=== PATIENT | female | born 1985 | race Caucasian/White ===

== ENCOUNTER 2019-07-04 17:55 | Emergency (ER) | payer OTHER ==
[~2019-07-04] VITALS: Ht 157.5 cm; Wt 101.2 kg
[2019-07-04 18:02] VITALS: BP 110/79
--- NOTE | 2019-07-04 18:06 | NUR ---
PT C/O ONGOING R [facility]OTHACHE TO [place] [facility]. STATES SHE WAS SUPPOSED TO SEE DENTIST YESTERDAY BUT IT WAS CLOSED DUE TO COVID-19. PT ALSO ADDS REFERRED R EAR PAIN AND H/A 7/10 IN SEVERITY. PT ALERT AND AWAKE, VS STABLE. AMBULATORY WITH STEADY GAIT. PMH- DENIES
--- NOTE | 2019-07-04 18:11 | NUR ---
RHODA MEAD AT BEDSIDE
[2019-07-04] MEDS ORDERED: KETOROLAC 30 MG/ML VIAL IM ONE (18:15)
--- NOTE | 2019-07-04 18:21 | NUR ---
[facility] IM ADMINISTERED
--- NOTE | 2019-07-04 18:50 | NUR ---
PT STATES LITTLE RELIEF FROM PAIN, PAIN 09/22, PA MEAD NOTIFIED, STATES DISHCARGE PT AND HAVE HER FILL PRESCRIPTION
[2019-07-04 18:51] VITALS: BP 115/71
--- NOTE | 2019-07-04 18:51 | NUR ---
Patient discharged with v/s stable. Written and verbal after care instructions given and explained. Patient alert, oriented and verbalized understanding of instructions. Ambulatory with steady gait. All questions addressed prior to discharge. ID band removed. Patient advised to follow up with PMD. Rx of AMOXICILLIN, TYLENOL WITH CODEINE, AND IBUPROFEN given. Patient educated on indication of medication including possible reaction and side effects. Opportunity to ask questions provided and answered.
== END 2019-07-04 18:51 | disposition home or self-care (01) ==
LOC: MED 17:55
DX: K08.89 Other specified disorders of teeth and supporting structures (principal); K66.9 Disorder of peritoneum, unspecified
CPT/HCPCS: 96372; 99283; J1885

== ENCOUNTER 2020-04-02 21:10 | Emergency (ER) | payer OTHER ==
[~2020-04-02] VITALS: Ht 152.4 cm; Wt 79.4 kg
[2020-04-02 21:10] VITALS: BP 134/80
--- NOTE | 2020-04-02 21:12 | NUR ---
CARMEN CHENG A/W BED AMBULATORY
[2020-04-02 21:30] VITALS: BP 134/80
[2020-04-02] MEDS ORDERED: IBUPROFEN 600 MG TAB PO ONE (21:55)
--- NOTE | 2020-04-02 21:58 | NUR ---
AMBULATED TO CHAIR D
--- NOTE | 2020-04-02 23:28 | NUR ---
Patient discharged with v/s stable. Written and verbal after care instructions given and explained. Patient alert, oriented and verbalized understanding of instructions. Ambulatory with steady gait. All questions addressed prior to discharge. ID band removed. Patient advised to follow up with PMD. Rx of PENICILLIN AND MOTRIN given. Patient educated on indication of medication including possible reaction and side effects. Opportunity to ask questions provided and answered.
== END 2020-04-02 23:28 | disposition home or self-care (01) ==
LOC: MED 21:10
DX: K04.7 Periapical abscess without sinus (principal)
CPT/HCPCS: 99283

== ENCOUNTER 2020-12-08 11:14 | Emergency (ER) | payer OTHER, SELFPAY ==
[~2020-12-08] VITALS: Ht 162.6 cm; Wt 90.7 kg
[2020-12-08 11:25] VITALS: BP 120/85
--- NOTE | 2020-12-08 11:37 | NUR ---
PATIENT PRESENTS TO ED WITH LEFT SIDED CHEST PAIN AND DIZZINESS X2 DAYS . PT STATES SHE [facility]DAY FOR LOWER BACK PAIN AND WAS SENT HOME WITH A MUSCLE RELAXANT . DENIES N/V/D; SKIN IS PINK/WARM/DRY; AAOX4 WITH EVEN AND STEADY GAIT; LUNGS CLEAR BL; HR EVEN AND REGULAR; PT DENIES ANY FEVER, SOB, OR COUGH AT THIS TIME; PATIENT STATES PAIN OF 4/10 AT THIS TIME; VSS; PATIENT POSITIONED FOR COMFORT; HOB ELEVATED; BEDRAILS UP X2; BED DOWN. ER MD MADE AWARE OF PT STATUS.
[2020-12-08] MEDS ORDERED: KETOROLAC 60 MG/2 ML VIAL IM ONE (11:50)
[2020-12-08] MEDS ORDERED: IBUP-2213 PO (11:59)
[2020-12-08 12:34] VITALS: BP 120/85
== END 2020-12-08 12:34 | disposition home or self-care (01) ==
LOC: MED 11:14
DX: R07.81 Pleurodynia (principal); M54.9 Dorsalgia, unspecified
CPT/HCPCS: 81002; 81025; 93005; 96372; 99283; J1885

== ENCOUNTER 2023-11-08 14:48 | Emergency (ER) | payer OTHER ==
[~2023-11-08] VITALS: Ht 154.9 cm; Wt 104.8 kg
[~2023-11-08 14:48] MED LIST: IBUP-2213 PO
[2023-11-08 15:09] VITALS: BP 126/87; PULSE 75; RESP 18; TEMP 97.7; O2SAT 100
[2023-11-08 16:19] LABS: BASOPHILS # (AUTO) 0.1 K/uL (0.00-0.22); BASOPHILS % (AUTO) 0.7 % (0.0-2.0); EOSINOPHILS # (AUTO) 0.1 K/uL (0-0.4); EOSINOPHILS % (AUTO) 1.6 % (0.0-4.0); HEMATOCRIT 37.8 % (36-48); HEMOGLOBIN 11.9 g/dL (12.0-16.0); LYMPHOCYTES # (AUTO) 2.4 K/uL (2.5-16.5); LYMPHOCYTES % (AUTO) 30.6 % (20.5-51.1); MEAN CORPUSCULAR HEMOGLOBIN 24 pg (27-31); MEAN CORPUSCULAR HGB CONC 32 g/dL (33-37); MEAN CORPUSCULAR VOLUME 76.9 fL (80-94); MONOCYTES # (AUTO) 0.6 K/uL (0.8-1.0); MONOCYTES % (AUTO) 8.3 % (1.7-9.3); NEUTROPHILS # (AUTO) 4.6 K/uL (1.8-7.7); NEUTROPHILS % (AUTO) 58.8 % (42.2-75.2); PLATELET COUNT (AUTO) 331 K/uL (140-450); RED BLOOD CELL COUNT(AUTO) 4.91 MIL/uL (4.20-5.40); RED CELL DISTRIBUTION WIDTH 15.9 % (11.6-13.7); WHITE BLOOD COUNT (AUTO) 7.9 K/uL (4.8-10.8)
[2023-11-08 16:28] LABS: ANION GAP 14.3 (8-16); CALCIUM 9.2 mg/dL (8.5-10.1); CARBON DIOXIDE 23.3 mmol/L (21-32); CREATININE 0.7 mg/dL (0.6-1.3); POTASSIUM 3.6 mmol/L (3.5-5.1)
[2023-11-08] MEDS: KETOROLAC 30 MG/ML VIAL IM ONE (16:37)
[2023-11-08] MEDS ORDERED: IBUP-2213 PO (16:42)
[2023-11-08 16:55] VITALS: BP 119/78; PULSE 65; RESP 18; TEMP 97.5; O2SAT 100
== END 2023-11-08 16:55 | disposition home or self-care (01) ==
LOC: MED 14:48
DX: R07.89 Other chest pain (principal); Z79.899 Other long term (current) drug therapy
CPT/HCPCS: 36415; 80048; 81025; 84484; 85025; 93005; 96372; 99284; J1885

== ENCOUNTER 2023-12-19 16:10 | Emergency (ER) | payer OTHER ==
[~2023-12-19] VITALS: Ht 160 cm; Wt 106.7 kg
[2023-12-19 16:46] VITALS: BP 126/81; PULSE 71; RESP 19; TEMP 98.1; O2SAT 97
[2023-12-19] MEDS ORDERED: TETRACAINE HCL/PF 0.5% OPTH 4 ML BTL ONE ×2 (18:17)
[2023-12-19] MEDS: TETRACAINE 1% 2 ML AMP INJ ONE (18:20)
[2023-12-19] MEDS: FLUORESCEIN OPTH STRIP 1 MG OP ONE (18:20)
[2023-12-19] MEDS: TETRACAINE HCL/PF 0.5% OPTH 4 ML BTL OP ONE (18:21)
[2023-12-19] MEDS ORDERED: ACET-9882 PO (18:52)
[2023-12-19] MEDS ORDERED: KETO10SO LEFT EYE (18:52)
== END 2023-12-19 19:18 | disposition home or self-care (01) ==
LOC: MED 16:10
DX: H57.12 Ocular pain, left eye (principal); H53.9 Unspecified visual disturbance; R03.0 Elevated blood-pressure reading, without diagnosis of hypertension; Z79.899 Other long term (current) drug therapy
CPT/HCPCS: 99284